=== PATIENT | male | born 1960 | race African-American/Black ===

== ENCOUNTER 2025-01-16 10:56 | Inpatient (IN) | payer OTHER ==
[~2025-01-16] VITALS: Ht 180.3 cm; Wt 81.6 kg
[2025-01-16] MEDS ORDERED: KETOROLAC TROMETHAMINE 15 MG/ML VIAL ONE (11:29)
[2025-01-16] MEDS: KETOROLAC TROMETHAMINE 15 MG/ML VIAL IV ONE (11:30)
[2025-01-16] MEDS ORDERED: ACETAMINOPHEN ES 500 MG TABLET ONE (11:38)
[2025-01-16] MEDS ORDERED: LIDOCAINE 5% (PATCH) 1 EA PATCH TP ONE (11:38)
[2025-01-16] MEDS ORDERED: CYCLOBENZAPRINE 10 MG TABLET ONE (11:39)
[2025-01-16] MEDS: CYCLOBENZAPRINE 10 MG TABLET PO ONE (11:41)
[2025-01-16] MEDS: ACETAMINOPHEN ES 500 MG TABLET PO ONE (11:41)
[2025-01-16] MEDS: LIDOCAINE 5% (PATCH) 1 EA PATCH TP SCH (11:42)
[2025-01-16 11:44] LABS: BASOPHILS % (AUTO) 0.4 % (0.0-2.0); EOSINOPHILS % (AUTO) 0.2 % (0.0-6.0); LYMPHOCYTES # (AUTO) 2.7 K/uL (0.8-4.8); LYMPHOCYTES % (AUTO) 23.8 % (20.0-44.0); MEAN CORPUSCULAR HEMOGLOBIN 20 PG (26.0-33.0); MEAN CORPUSCULAR HGB CONC 29 g/dl (31.0-36.0); MEAN CORPUSCULAR VOLUME 71 fL (80-96); MONOCYTES # (AUTO) 0.4 K/uL (0.1-1.30); MONOCYTES % (AUTO) 3.8 % (2.0-12.0); NEUTROPHILS # (AUTO) 8.3 K/uL (1.8-8.9); NEUTROPHILS % (AUTO) 71.8 % (43.0-81.0); PLATELET COUNT (AUTO) 400 K/uL (150-450); RED BLOOD CELL COUNT(AUTO) 2.79 MIL/uL (4.5-6.0); RED CELL DISTRIBUTION WIDTH 27.2 % (11.5-15.0); WHITE BLOOD COUNT (AUTO) 11.5 K/uL (4.3-11.0)
[2025-01-16 11:45] LABS: HEMATOCRIT 20 % (39-51); HEMOGLOBIN 5.7 g/dL (13.5-17.5)
[2025-01-16 11:48] LABS: CALCIUM, SERUM 8.4 mg/dL (8.5-10.1); POTASSIUM 3.6 mmol/L (3.5-5.1)
[2025-01-16] MEDS ORDERED: FUROSEMIDE 40 MG/4 ML VIAL ONE (11:53)
[2025-01-16] MEDS: FUROSEMIDE 40 MG/4 ML VIAL IV ONE (11:55)
[2025-01-16 12:00] LABS: ALBUMIN 2.6 g/dL (3.4-5.0); BILIRUBIN,TOTAL 0.5 mg/dL (0.2-1.0); TOTAL PROTEIN, SERUM 7.4 g/dL (6.4-8.2)
[2025-01-16 12:22] LABS: ANISOCYTOSIS 1+; HYPOCHROMASIA 2+; LYMPHOCYTES % (MANUAL) 11 % (16-48); MONOCYTES % (MANUAL) 5 % (0-11.0); NEUTROPHILS % (MANUAL) 84 (42-76); PLATELET ESTIMATE ADEQUATE
[2025-01-16 12:23] LABS: TARGET CELLS 1+
[2025-01-16] MEDS ORDERED: ACETAMINOPHEN 325 MG TABLET PO PRN (13:30)
[2025-01-16] MEDS ORDERED: ONDANSETRON HCL/PF 4 MG/2 ML VIAL IVP PRN (13:30)
[2025-01-16 14:10] VITALS: BP 145/56; TEMP 97.5
[2025-01-16 14:25] VITALS: BP 136/78; TEMP 98.2
[2025-01-16 15:25] VITALS: BP 128/74; TEMP 97.7
[2025-01-16 16:40] VITALS: BP 136/76; TEMP 98.6
[2025-01-16 17:03] VITALS: BP 136/76; TEMP 98; O2SAT 98
[2025-01-16 17:27] LABS: IRON, SERUM 9 ug/dl (50-175); TOTAL IRON BINDING CAPACITY 253 ug/dl (250-450)
[2025-01-16] MEDS: SOD FERRIC GLUC 125 MG in IV NS 0.9% 100 ML IV SCH (17:52)
[2025-01-16] MEDS: BACLOFEN (10 MG) 10 MG TABLET PO SCH (20:32)
[2025-01-16 21:00] VITALS: BP 167/81; TEMP 98.1; O2SAT 99
[2025-01-16 21:52] LABS: BASOPHILS % (AUTO) 0.4 % (0.0-2.0); EOSINOPHILS # (AUTO) 0.1 K/uL (0.0-0.7); EOSINOPHILS % (AUTO) 1.1 % (0.0-6.0); HEMATOCRIT 21 % (39-51); LYMPHOCYTES # (AUTO) 1.7 K/uL (0.8-4.8); LYMPHOCYTES % (AUTO) 21.8 % (20.0-44.0); MEAN CORPUSCULAR HEMOGLOBIN 22 PG (26.0-33.0); MEAN CORPUSCULAR HGB CONC 31 g/dl (31.0-36.0); MEAN CORPUSCULAR VOLUME 71 fL (80-96); MONOCYTES # (AUTO) 0.6 K/uL (0.1-1.30); MONOCYTES % (AUTO) 7.9 % (2.0-12.0); NEUTROPHILS # (AUTO) 5.2 K/uL (1.8-8.9); NEUTROPHILS % (AUTO) 68.8 % (43.0-81.0); PLATELET COUNT (AUTO) 376 K/uL (150-450); RED BLOOD CELL COUNT(AUTO) 2.98 MIL/uL (4.5-6.0); RED CELL DISTRIBUTION WIDTH 25.9 % (11.5-15.0); WHITE BLOOD COUNT (AUTO) 7.6 K/uL (4.3-11.0)
[2025-01-16 21:58] LABS: HEMOGLOBIN 6.5 g/dL (13.5-17.5)
[2025-01-16 22:11] LABS: LYMPHOCYTES % (MANUAL) 9 % (16-48); MONOCYTES % (MANUAL) 2 % (0-11.0); NEUTROPHILS % (MANUAL) 89 (42-76)
[2025-01-16 22:12] LABS: ANISOCYTOSIS 1+; HYPOCHROMASIA 2+; PLATELET ESTIMATE ADEQUATE; TARGET CELLS 1+
[2025-01-16] MEDS: HYDROCODONE/APAP 5/325MG TABLET PO PRN (23:29)
[2025-01-17] VITALS (12 sets, daily range): BP systolic 157–187; BP diastolic 70–97; TEMP 97.3–98.1; O2SAT 92–96
[2025-01-17] MEDS: MORPHINE SULFATE INJ 4 MG/ML DISP.SYRIN IV PRN (02:28)
[2025-01-17 07:37] LABS: CALCIUM, SERUM 7.9 mg/dL (8.5-10.1); MAGNESIUM 1.9 mg/dL (1.8-2.4); POTASSIUM 4.5 mmol/L (3.5-5.1)
[2025-01-17 08:15] LABS: BASOPHILS % (AUTO) 0.4 % (0.0-2.0); EOSINOPHILS # (AUTO) 0.1 K/uL (0.0-0.7); EOSINOPHILS % (AUTO) 0.8 % (0.0-6.0); HEMATOCRIT 28 % (39-51); HEMOGLOBIN 8.6 g/dL (13.5-17.5); LYMPHOCYTES # (AUTO) 1.9 K/uL (0.8-4.8); LYMPHOCYTES % (AUTO) 20.6 % (20.0-44.0); MEAN CORPUSCULAR HEMOGLOBIN 23 PG (26.0-33.0); MEAN CORPUSCULAR HGB CONC 31 g/dl (31.0-36.0); MEAN CORPUSCULAR VOLUME 76 fL (80-96); MONOCYTES # (AUTO) 0.7 K/uL (0.1-1.30); MONOCYTES % (AUTO) 7.2 % (2.0-12.0); NEUTROPHILS # (AUTO) 6.7 K/uL (1.8-8.9); PLATELET COUNT (AUTO) 404 K/uL (150-450); RED BLOOD CELL COUNT(AUTO) 3.68 MIL/uL (4.5-6.0); RED CELL DISTRIBUTION WIDTH 26.5 % (11.5-15.0); WHITE BLOOD COUNT (AUTO) 9.4 K/uL (4.3-11.0)
[2025-01-17] MEDS ORDERED: BACLOFEN (10 MG) 10 MG TABLET PO SCH (09:00)
[2025-01-17] MEDS: predniSONE 20 MG TABLET PO SCH (12:38)
[2025-01-17] MEDS: PREGABALIN 25 MG CAPSULE PO SCH (12:38)
[2025-01-17] MEDS: METHOCARBAMOL (750MG) 750 MG TABLET PO SCH (12:38)
[2025-01-17] MEDS: FUROSEMIDE 20 MG/2 ML VIAL IV ONE (14:16)
[2025-01-17] MEDS: CLONIDINE HCL 0.1 MG TABLET PO PRN (22:45)
[2025-01-18] VITALS: BP 160/99; TEMP 97.7
[2025-01-18 04:00] VITALS: BP 153/91; TEMP 97.7
[2025-01-18 08:00] VITALS: BP 155/82; TEMP 98.6; O2SAT 98
[2025-01-18] MEDS: POLYETHYLENE GLYCOL 3350 17 GM POWD.PACK PO SCH (11:37)
[2025-01-18 12:00] VITALS: BP 174/100; TEMP 98.7; O2SAT 97
[2025-01-18 12:23] LABS: CALCIUM, SERUM 8.4 mg/dL (8.5-10.1); CREATININE 0.8 mg/dL (0.6-1.3); POTASSIUM 4.8 mmol/L (3.5-5.1)
[2025-01-18 12:26] LABS: BASOPHILS % (AUTO) 0.3 % (0.0-2.0); HEMATOCRIT 31 % (39-51); HEMOGLOBIN 9.6 g/dL (13.5-17.5); LYMPHOCYTES # (AUTO) 0.4 K/uL (0.8-4.8); LYMPHOCYTES % (AUTO) 4.3 % (20.0-44.0); MEAN CORPUSCULAR HEMOGLOBIN 23 PG (26.0-33.0); MEAN CORPUSCULAR HGB CONC 31 g/dl (31.0-36.0); MEAN CORPUSCULAR VOLUME 75 fL (80-96); MONOCYTES # (AUTO) 0.8 K/uL (0.1-1.30); MONOCYTES % (AUTO) 8.1 % (2.0-12.0); NEUTROPHILS # (AUTO) 8.7 K/uL (1.8-8.9); NEUTROPHILS % (AUTO) 87.3 % (43.0-81.0); PLATELET COUNT (AUTO) 493 K/uL (150-450); RED BLOOD CELL COUNT(AUTO) 4.15 MIL/uL (4.5-6.0); RED CELL DISTRIBUTION WIDTH 26.6 % (11.5-15.0); WHITE BLOOD COUNT (AUTO) 9.9 K/uL (4.3-11.0)
[2025-01-18 12:50] LABS: CREATININE, URINE 64.8 MG/DL (30.0-125.0); URINE TOTAL PROTEIN 28.3 mg/dL (0-11.9)
[2025-01-18 13:03] LABS: APPEARANCE,URINE CLEAR (CLEAR); BILIRUBIN,URINE NEGATIVE (NEGATIVE); BLOOD, URINE NEGATIVE Ery/uL (NEGATIVE); COLOR,URINE YELLOW (YELLOW); KETONES,URINE NEGATIVE (NEGATIVE); LEUKOCYTE ESTERASE ,URINE NEGATIVE (NEGATIVE); NITRITE, URINE NEGATIVE (NEGATIVE); PH,URINE 6.5 (5.0-8.0); PROTEIN,URINE NEGATIVE (NEGATIVE); UGLUCOSE NEGATIVE (NEGATIVE)
[2025-01-18 13:10] LABS: ADD URINE CULTURE NO; BACTERIA,URINE Rare /HPF (None Seen); RBC,URINE 0-2 /HPF (0-2); SQUAMOUS EPITHELIAL CELL,UR None Seen /HPF (None Seen)
[2025-01-18 13:34] LABS: EOSINOPHIL,URINE None Seen
[2025-01-18] MEDS: LABETALOL HCL (100MG) 100 MG TABLET PO SCH (14:29)
[2025-01-18 16:00] VITALS: BP 146/79; TEMP 98.1; O2SAT 99
[2025-01-18] MEDS: PREGABALIN 25 MG CAPSULE PO SCH (17:11)
[2025-01-18 20:00] VITALS: BP 140/82; TEMP 98.5; O2SAT 99
[2025-01-19] VITALS: BP 141/83; TEMP 98.9; O2SAT 99
[2025-01-19 04:00] VITALS: BP 135/80; TEMP 98; O2SAT 99
[2025-01-19 07:56] LABS: BASOPHILS % (AUTO) 0.3 % (0.0-2.0); EOSINOPHILS % (AUTO) 0.4 % (0.0-6.0); HEMATOCRIT 25 % (39-51); HEMOGLOBIN 7.8 g/dL (13.5-17.5); LYMPHOCYTES # (AUTO) 2.4 K/uL (0.8-4.8); LYMPHOCYTES % (AUTO) 26.7 % (20.0-44.0); MEAN CORPUSCULAR HEMOGLOBIN 24 PG (26.0-33.0); MEAN CORPUSCULAR HGB CONC 32 g/dl (31.0-36.0); MEAN CORPUSCULAR VOLUME 74 fL (80-96); MONOCYTES # (AUTO) 0.8 K/uL (0.1-1.30); NEUTROPHILS # (AUTO) 5.7 K/uL (1.8-8.9); NEUTROPHILS % (AUTO) 63.6 % (43.0-81.0); PLATELET COUNT (AUTO) 516 K/uL (150-450); RED BLOOD CELL COUNT(AUTO) 3.34 MIL/uL (4.5-6.0); RED CELL DISTRIBUTION WIDTH 27.2 % (11.5-15.0)
[2025-01-19 08:00] VITALS: BP 163/71; TEMP 98.8; O2SAT 96
[2025-01-19 08:05] LABS: ALBUMIN 2.3 g/dL (3.4-5.0); BILIRUBIN,TOTAL 0.3 mg/dL (0.2-1.0); CALCIUM, SERUM 8.5 mg/dL (8.5-10.1); CREATININE 0.7 mg/dL (0.6-1.3); MAGNESIUM 1.9 mg/dL (1.8-2.4); POTASSIUM 3.8 mmol/L (3.5-5.1); TOTAL PROTEIN, SERUM 7.2 g/dL (6.4-8.2)
[2025-01-19 08:07] LABS: THYROID STIMULATING HORMONE 3.1 uIU/mL (0.358-3.74); URIC ACID 2.6 mg/dL (2.6-7.2)
[2025-01-19 09:00] VITALS: BP 163/71
[2025-01-19] MEDS: predniSONE 20 MG TABLET PO SCH (09:00)
[2025-01-20 05:09] LABS: PTH, INTACT 18 pg/mL (15-65)
[2025-01-23 09:09] LABS: *SPE A/G RATIO 0.6 (0.7-1.7); *SPE ALBUMIN 2.6 g/dL (2.9-4.4); *SPE ALPHA-1-GLOBULIN 0.4 g/dL (0.0-0.4); *SPE ALPHA-2-GLOBULIN 0.9 g/dL (0.4-1.0); *SPE BETA GLOBULIN 0.9 g/dL (0.7-1.3); *SPE GLOBULIN, TOTAL 4.1 g/dL (2.2-3.9); *SPE M-SPIKE 1.8 g/dL (Not Observed); *SPE PROTEIN TOTAL 6.7 g/dL (6.0-8.5)
== END 2025-01-19 11:07 | disposition left against medical advice (07) | DRG 253 ==
LOC: ER 11:07 → MEDSG1 13:10 → TELE1 13:58
PROVIDERS: ADMIT Nurse Practitioner Acute Care; ATTEND Nurse Practitioner Family
PROC: 30233N1 Transfusion of Nonautologous Red Blood Cells into Peripheral Vein, Percutaneous Approach (ICD-10-PCS; principal; 2025-01-16)
DX: K92.2 Gastrointestinal hemorrhage, unspecified (principal); I50.33 Acute on chronic diastolic (congestive) heart failure; E44.0 Moderate protein-calorie malnutrition; E87.1 Hypo-osmolality and hyponatremia; E88.09 Other disorders of plasma-protein metabolism, not elsewhere classified; I71.21 Aneurysm of the ascending aorta, without rupture; D50.9 Iron deficiency anemia, unspecified; G89.29 Other chronic pain; E86.1 Hypovolemia; Z87.01 Personal history of pneumonia (recurrent); D72.829 Elevated white blood cell count, unspecified; D62 Acute posthemorrhagic anemia; M51.26 Other intervertebral disc displacement, lumbar region; Z53.29 Procedure and treatment not carried out because of patient's decision for other reasons
CPT/HCPCS: 36415; 71045-TC; 71250-TC; 80048-TC; 80053-TC; 81001; 82550-TC; 82570-TC; 82728-TC; 83540-TC; 83735-TC; 83880; 83970; 84100-TC; 84155; 84165; 84300-TC; 84443-TC; 84550-TC; 85025-TC; 85027-TC; 86850-TC; 87081-TC; 93307-TC; 97110-TC; 97112-TC; 97530-TC; A4223; G0378; J1885; J1938; J2270; J2916; J7030; J7040; J7050; P9016

== ENCOUNTER 2025-04-23 18:51 | Emergency (ER) | payer OTHER ==
[~2025-04-23] VITALS: Ht 180.3 cm; Wt 74.8 kg
[2025-04-23 19:08] VITALS: TEMP 98.5
[2025-04-23] MEDS ORDERED: KETOROLAC TROMETHAMINE INJ 30 MG/ML VIAL ONE (19:37)
[2025-04-23] MEDS ORDERED: CYCL5TAB PO (19:39)
[2025-04-23] MEDS: KETOROLAC TROMETHAMINE INJ 30 MG/ML VIAL IM ONE (19:43)
[2025-04-23 19:50] VITALS: BP 146/60; O2SAT 98
== END 2025-04-23 19:50 | disposition home or self-care (01) ==
LOC: ER 18:55
DX: G89.29 Other chronic pain (principal); M54.50 Low back pain, unspecified; I10 Essential (primary) hypertension
CPT/HCPCS: 99283; 96372; J1885